=== PATIENT | female | born 1965 | race Hispanic/Latino ===

== ENCOUNTER 2017-12-15 06:34 | Inpatient (IN) | payer MEDICARE ==
[2017-12-14 11:27] VITALS: BMI 33.6
[2017-12-15 07:21] LABS: BASO # 0.1 K/uL (0.0-0.2); BASO % 0.8 % (0.0-2.0); EOS # 0.3 K/uL (0.0-0.7); EOS % 2.9 % (0.0-4.0); HEMOGLOBIN 15.1 g/dL (12.0-16.0); LYMPH # 2.8 K/uL (1.0-4.3); LYMPH % 29.9 % (20.0-40.0); MEAN CELL VOLUME 92.5 fl (81.0-99.0); MEAN CORPUSCULAR HEMOGLOBIN 32.5 pg (27.0-31.0); MEAN CORPUSCULAR HGB CONC 35.2 g/dL (33.0-37.0); MEAN PLATELET VOLUME 8.9 fl (7.2-11.7); MONO # 0.8 K/uL (0.0-0.8); NEUT # 5.3 K/uL (1.8-7.0); NEUT % 57.4 % (50.0-75.0); NRBC % 0.2 % (0.0-0.0); RBC 4.65 Mil/uL (3.80-5.20); RED CELL DISTRIBUTION WIDTH 12.4 % (11.5-14.5); WHITE BLOOD COUNT 9.3 K/uL (4.8-10.8)
--- NOTE | 2017-12-15 07:37 | CP.PCM.CON ---
History of Present Illness - History of Present Illness History of Present Illness: Orthopedic Consult: Dr. Borja Patient is a 52 y/o female with PMH of HTN,HLD, CVA and chronic back pain who presents for elective right TKA. The patient has had chronic right knee pain for many years. The pain has severely hindered her activities of daily living such as walking, stair-climbing and sitting. She has failed conservative management with exercises and oral medications, as well as intra-articular injections. She admits to occassional radiation of pain, numbness and tingling traveling to [facility] related to her chronic back issues. She also denies CP/SOB/N/V/D/fever/WILSON/dysuria/melena. Review of Systems - Review of Systems All systems: reviewed and no additional remarkable complaints except Review of Systems: as per HPI Past Patient History - Past Medical History & Family History Past Medical History?: Yes Past Family History: Reviewed and not pertinent - Past Social History Smoking Status: Light Smoker < 10 Cigarettes Daily Alcohol: None Drugs: Denies - CARDIAC Hx Cardiac Disorders: Yes Hx Hypercholesterolemia: Yes Hx Hypertension: Yes - PULMONARY Hx Respiratory Disorders: Yes Hx Asthma: Yes - NEUROLOGICAL HX Cerebrovascular Accident: Yes - HEENT Hx HEENT Problems: No - RENAL Hx Chronic Kidney Disease: No - ENDOCRINE/METABOLIC Hx Endocrine Disorders: No - HEMATOLOGICAL/ONCOLOGICAL Hx Blood Disorders: No - INTEGUMENTARY Hx Dermatological Problems: No - MUSCULOSKELETAL/RHEUMATOLOGICAL Hx Musculoskeletal Disorders: Yes Hx Arthritis: Yes (joints) Hx Back Pain: Yes - GASTROINTESTINAL Hx Gastroesophageal Reflux: Yes - GENITOURINARY/GYNECOLOGICAL Hx Genitourinary Disorders: No - PSYCHIATRIC Hx Psychophysiologic Disorder: No - SURGICAL HISTORY Hx Surgeries: Yes Other/Comment: biopsy ovary, left carpal tunnel release - ANESTHESIA Hx Anesthesia: Yes Hx Anesthesia Reactions: No Has any member of the family had a problem w/ anesthesia?: No Meds Allergies/Adverse Reactions: Allergies Allergy/AdvReac Type Severity Reaction Status Date / Time Penicillins Allergy SWELLING Verified 12/15/17 08:34 - Medications Medications: as per med rec Physical Exam - Constitutional Appears: Well, No Acute Distress - Head Exam Head Exam: ATRAUMATIC, NORMOCEPHALIC - Eye Exam Eye Exam: EOMI, Normal appearance, PERRL - ENT Exam ENT Exam: Mucous Membranes Moist - Respiratory Exam Respiratory Exam: NORMAL BREATHING PATTERN - Cardiovascular Exam Cardiovascular Exam: +S1, +S2 - GI/Abdominal Exam GI & Abdominal Exam: Soft. absent: Tenderness - Extremities Exam Additional comments: R knee: mild swelling and effusion diffuse medial/lateral tenderness ROM limited due to pain sensation intact SP/DP/TN motor intact EHL/FHL/TA/G pedal pulses intact calves soft NT b/l - Neurological Exam Neurological exam: Alert, Oriented x3 - Psychiatric Exam Psychiatric exam: Normal Affect, Normal Mood - Skin Skin Exam: Normal Color, Warm Results - Labs Result Diagrams: 12/15/17 07:15 Assessment & Plan (1) Osteoarthritis of right knee Assessment and Plan: -OR today for R TKA with Dr. Borja -Admit to Hospitalist -NPO -Risks/benefits/alternatives were explained to patient who understands and agrees to proceed with above procedure -above d/w Dr. Borja in agreement Status: Acute
[2017-12-15 07:40] LABS: SQUAMOUS EPITHIAL 1 /hpf (0-5); URINE BILIRUBIN NEGATIVE (NEGATIVE); URINE BLOOD NEGATIVE (NEGATIVE); URINE CLARITY SLIGHTY-CLOUDY (Clear); URINE COLOR AMBER (YELLOW); URINE GLUCOSE (UA) NEG (Normal); URINE LEUKOCYTE ESTERASE SMALL Leu/uL (Negative); URINE PROTEIN 30 mg/dL (NEGATIVE); URINE UROBILINOGEN 0.2-1.0 mg/dL (0.2-1.0)
--- NOTE | 2017-12-15 07:44 | CP.PCM.HP ---
History of Present Illness - History of Present Illness History of Present Illness: 52 yo female with pmhx of RA, asthma, CVA (2014), pre-DM, HLD, HTN, MARLON (on cPAP), chronic headache, and GERD seen and evaluated in [facility] preoperatively prior to R TKR surgery. Presents with her daughter. Patient can speak [place] well but daughter helps to translate. States that she has had problems with her back and other parts of her body for a long time but her right knee has been giving her the most pain and discomfort for about 6-7 years. States she has participated in physical therapy, taken medications, and had accupuncture but all outpatient and conservative management has failed. States that her knee hurts the most after she has been walking on it and it swells and bruises but she is in constant pain even at rest. Patient presented to PCP for clearance and was made aware that she has a UTI with e. coli present. All participants in care made aware. Repeat UA performed upon admission to [facility] today. Patient only complains of right knee pain today and denies N/V/F/C/SOB/CP. She last ate at 9:00 PM last night and has not had any reactions to anesthesia in the past. Patient took her HCTZ this morning with minimal water. PMHx: RA, asthma, CVA (2014), pre-DM, HLD, HTN, MARLON (on cPAP), chronic headache, and GERD PSHx: ovarian biopsy, carpal tunnel Meds: duloxetine, HCTZ, famotidine, meclizine, alprazolam, atrovastatin, riboflavin, mometassone-formolenol All: penicllins SH: 30+ year smoker, denies alcohol use, no illicit drug use FH: non contributory Present on Admission - Present on Admission Any Indicators Present on Admission: No Review of Systems - Constitutional Constitutional: absent: Chills, Fever, Headache - EENT Nose/Mouth/Throat: absent: Nasal Congestion, Dry Mouth, Dysphagia - Cardiovascular Cardiovascular: absent: Chest Pain - Respiratory Respiratory: absent: Cough, Dyspnea, Wheezing - Gastrointestinal Gastrointestinal: absent: Diarrhea, Nausea, Vomiting - Musculoskeletal Additional comments: Pain in right knee - Neurological Neurological: absent: Numbness, Tingling Past Patient History - Past Medical History & Family History Past Medical History?: Yes - Past Social History Smoking Status: Light Smoker < 10 Cigarettes Daily - CARDIAC Hx Cardiac Disorders: Yes Hx Hypertension: Yes - PULMONARY Hx Respiratory Disorders: Yes Hx Asthma: Yes - NEUROLOGICAL Hx Neurological Disorder: No - HEENT Hx HEENT Problems: No - RENAL Hx Chronic Kidney Disease: No - HEMATOLOGICAL/ONCOLOGICAL Hx Blood Disorders: No - INTEGUMENTARY Hx Dermatological Problems: No - MUSCULOSKELETAL/RHEUMATOLOGICAL Hx Musculoskeletal Disorders: Yes Hx Arthritis: Yes (joints) - GASTROINTESTINAL Hx Gastrointestinal Disorders: No - GENITOURINARY/GYNECOLOGICAL Hx Genitourinary Disorders: No - PSYCHIATRIC Hx Psychophysiologic Disorder: No - SURGICAL HISTORY Hx Surgeries: Yes Other/Comment: biopsy ovary - ANESTHESIA Hx Anesthesia: Yes Hx Anesthesia Reactions: No Has any member of the family had a problem w/ anesthesia?: No Meds Allergies/Adverse Reactions: Allergies Allergy/AdvReac Type Severity Reaction Status Date / Time Penicillins Allergy SWELLING Verified 12/15/17 08:34 Physical Exam - Constitutional Appears: Well, Non-toxic, No Acute Distress - Head Exam Head Exam: ATRAUMATIC, NORMOCEPHALIC - Eye Exam Eye Exam: EOMI, Normal appearance - ENT Exam ENT Exam: Mucous Membranes Moist - Respiratory Exam Respiratory Exam: Clear to Auscultation Bilateral, NORMAL BREATHING PATTERN - Cardiovascular Exam Cardiovascular Exam: REGULAR RHYTHM, +S1, +S2 - GI/Abdominal Exam GI & Abdominal Exam: Normal Bowel Sounds, Soft - Extremities Exam Extremities exam: Positive for: normal capillary refill, pedal pulses present Additional comments: Edema present at b/l LE, nonpitting Right knee swollen, no bruising or erythema present - Neurological Exam Neurological exam: Alert, Oriented x3 - Psychiatric Exam Psychiatric exam: Normal Affect, Normal Mood - Skin Skin Exam: Intact, Normal Color, Warm Results - Labs Result Diagrams: 12/15/17 07:15 Labs: Laboratory Results - last 24 hr 12/15/17 07:15 WBC 9.3 RBC 4.65 Hgb 15.1 Hct 43.0 MCV 92.5 MCH 32.5 H MCHC 35.2 RDW 12.4 Plt Count 273 MPV 8.9 Neut % (Auto) 57.4 Lymph % (Auto) 29.9 [place] % (Auto) 9.0 Eos % (Auto) 2.9 Baso % (Auto) 0.8 Neut # (Auto) 5.3 Lymph # (Auto) 2.8 [place] # (Auto) 0.8 Eos # (Auto) 0.3 Baso # (Auto) 0.1 Assessment & Plan - Assessment and Plan (Free Text) Assessment: 52 yo female with pmhx of RA, asthma, CVA (2013), pre-DM, HLD, HTN, MARLON (on cPAP), chronic headache, and GERD presents to same day surgery for elective R TKR. Plan: 1. Chronic right knee pain and swelling - orthopedic consult - Dr. Borja appreciated recs, f/u - elective R TKR today POD 0 - NPO confirmed with patient and daughter 2. UTI - repeat U&S ordered - ciprofloxacin 400mg ordered 3. HLD - chronic, controlled - continue at home rx 4. HTN - chronic, controlled - continue at home rx 5. MARLON - chronic - cPAP 6. GERD - chronic - continue home rx 6. DVT prophylaxis - continue s/p R TKR - Date & Time Date: 12/15/17 Time: 10:54
[2017-12-15] MEDS ORDERED: Propofol 10 mg/ml Inj (20 ML) ONE (08:35)
[2017-12-15] MEDS ORDERED: Midazolam 2 MG/2 ML VIAL ONE (08:36)
[2017-12-15] MEDS ORDERED: Lidocaine 2% MPF (5 ml) Inj ONE (08:36)
[2017-12-15] MEDS ORDERED: Ropivacaine 0.5% 30ML IV ONE (08:42)
[2017-12-15] MEDS ORDERED: Sevoflurane - Inhalation Anesthetic Liq (250 ml) ONE (08:50)
[2017-12-15] MEDS ORDERED: Bacitracin Ointment 30 GM TUBE ONE (09:27)
[2017-12-15] MEDS ORDERED: Absorbable Gelatin Sponge Size 12-7 ONE (09:27)
[2017-12-15] MEDS ORDERED: Lidocaine 2% Jelly (5 ml) TOP ONE (10:21)
[2017-12-15] MEDS ORDERED: Succinylcholine 200 mg/10 ml Inj IV ONE (10:22)
[2017-12-15] MEDS ORDERED: Lactated Ringer's 1,000 ML IV ONE ×3 (10:25→17:30)
[2017-12-15] MEDS ORDERED: ePHEDrine 50 mg/ml Inj ONE ×2 (10:44→11:17)
[2017-12-15] MEDS ORDERED: Rocuronium 10 mg/ml (5 ml) ONE (10:54)
[2017-12-15] MEDS ORDERED: Tranexamic Acid 1,000 MG in Sodium Chloride 0.9% 100 ML IVPB ONE (12:45)
[2017-12-15] MEDS ORDERED: Sodium Chloride 0.9% 500 ML IV ONE (13:00)
[2017-12-15] MEDS ORDERED: Lactated Ringer's 500 ML IV ONE (13:00)
[2017-12-15] MEDS ORDERED: Neostigmine 1:1000 (1 mg/ml) Inj ONE (13:27)
--- NOTE | 2017-12-15 13:41 | PCM.SURG1 ---
Surgeon's Initial Post Op Note - Surgeon's Notes Surgeon: Jonh Special Delivery Clerk: 1st assist AVANI Thibodeaux/ 2nd assist Marisol Sheehan PA-C Type of Anesthesia: General Endo, Block Regional Anesthesia Administered By: DR Elroy Lord Pre-Operative Diagnosis: Tricomartmental O/A R knee Operative Findings: tricompartmental O/A R knee. tricomaprtmental synovitis. lateral patella contracture Post-Operative Diagnosis: as above Operation Performed: R TKR. repair/reinforcement R patella ligament. posterior capsular release. lateral patella release. computyer navigation Specimen/Specimens Removed: cartilage/synvoium bone Estimated Blood Loss: EBL {In ML}: 72 Blood Products Given: N/A Drains Used: Wound Vac Post-Op Condition: Fair Date of Surgery/Procedure: 12/15/17 Time of Surgery/Procedure: 11:35 (time in room 1025 anaesthesia indcutiontime)
--- NOTE | 2017-12-15 13:57 | CARD ---
APPROVED REPORT Date of service: 12/15/2017 EKG Measurement Heart [id number] <Conclusion> Normal sinus rhythm Normal ECG
--- NOTE | 2017-12-15 14:11 | PCM.ANESB3 ---
Femoral Nerve Block - Femoral Nerve Block Date of Procedure: 12/15/17 Anesthesiologist: Elroy Lord M.D. Pre-Procedure Diagnosis: Right osteoarthritis Post-Procedure Diagnosis: Right osteeoarthritis Procedure Performed: Femoral Nerve Block Right - Procedure Femoral Nerve Block: The procedure was explained to the patient that it is for the post-operative pain management. Consent was obtained after a thorough discussion with the patient regarding the benefits and possible complications of local anesthetic block of the femoral nerve at the inguinal crease area. The patient was brought to the operating room and standard monitors were applied. Time-out was held with the circulating nurse to confirm the correct surgery and the appropriate block.Under general anesthesia, The femoral artery was then carefully palpated. The ultrasound transducer was then applied to this area in the transverse plane and the femoral nerve was visualized lateral to the femoral artery and underneath the fascia iliaca. After thorough identification, the inguinal crease area was prepped with Betadine solution three times and 1 % Lidocaine was injected subcutaneously for topical anesthesia. At this point, a #22 gauge Stimuplex 2-inch needle was inserted immediately lateral to the femoral artery pulse at the inguinal crease and advanced perpendicularly. The needle was inserted to the ultrasound transducer in-plane towards the femoral nerve in a [id number] direction. Needle advancement was performed carefully under direct ultrasound visualization. Nerve stimulator was used and twitch of the quadriceps muscle was obtained at current of _.4____MA. After negative aspiration, __20___cc of __.5___% __ropivacaine was injected. with ___0___ c . Under ultrasound guidance the local anesthetics were observed spreading below fascia iliaca and around the femoral nerve. The needle was removed intact and sterile dressing was applied. The patient had stable vital signs, was conscious and in no apparent distress. The patient tolerated the femoral nerve block well with stable vital signs and was prepared for subsequent surgery.
[2017-12-15] MEDS ORDERED: Sodium Chloride 0.9% 1,000 ML IV SCH (14:15)
--- NOTE | 2017-12-15 14:26 | PCM.ANESB2 ---
Popliteal Nerve Block - Popliteal Nerve Block Date of Procedure: 12/15/17 Anesthesiologist: Elroy Lord M.D. Pre-Procedure Diagnosis: Right osteoarthritis Post-Procedure Diagnosis: Right osteoarthritis Procedure Performed: Popliteal Nerve Block Right - Procedure Popliteal Nerve Block: This procedure was explained to the patient that it is for post-operative pain management. Consent was obtained after a thorough discussion with the patient regarding the benefits and possible complications of local anesthetic block of the sciatic nerve at the popliteal level. The patient was brought to the operating room and standard monitors are applied. Time-out was held with the circulating nurse to confirm the correct surgery and the appropriate block.Under general anesthesia, , patient's operative leg was gently raised and supported and the groove in between the biceps femoris and vastus lateralis muscles was carefully palpated. The skin approximately 8cm above the popliteal crease was then marked. The ultrasound transducer was then applied to the posterior thigh approximately 8cm above the popliteal crease in the transverse plane and the sciatic nerve before its division was visualized lateral to the popliteal artery and in between the bicep femoris and semimembranosus/semitendinosus muscles. After identification, the lateral portion of the thigh was prepped with Betadine solution three times and Lidocaine 1% was injected subcutaneously for topical anesthesia. At this point, a # 21 gauge Stimuplex insulated 4 inch needle was inserted into pre-marked area and advanced in a perpendicular direction. The needle was inserted above the ultrasound transducer in-plane towards the sciatic nerve in a [id number] direction. Needle advancement was performed carefully under direct ultrasound visualization. Nerve stimulator was used and dorsiflexion of the __right___ foot was elicited at a current of _.4____ MA. After repeated negative aspiration, 20 cc of _.5____ % __ropivacaine was injected. . The needle was removed intact and sterile dressing was applied. The patient tolerated the popliteal nerve block well with stable vital signs and was subsequently prepared for the surgery.
--- NOTE | 2017-12-15 15:22 | RAD ---
Date of service: 12/15/2017 PROCEDURE: Postop right knee HISTORY: s/p TKR pt in PACU COMPARISON: None. TECHNIQUE: Portable study 14:52 FINDINGS: Expected postoperative findings status post right TKA. Air/fluid in the suprapatellar bursa noted. IMPRESSION: Satisfactory postoperative status.
[2017-12-15] MEDS: Ciprofloxacin 400mg/200ml D5W 400 MG/200 ML BAG IVPB SCH ×2 (15:30→23:00)
--- NOTE | 2017-12-15 16:51 | CP.PCM.PCO ---
Physician Communication Note - Physician Communication Note Physician Communication Note: Seen at bedside, denies N/V/F/C/SOB/CP, denies pain s/p R TKR POD 0
[2017-12-15] MEDS: Fluticasone-Salmeterol 250-50mcg Diskus IH SCH (21:43)
[2017-12-15] MEDS: Clindamycin 600mg/50ml NS 600 MG/50 ML BAG IVPB SCH (21:44)
[2017-12-15] MEDS: Pantoprazole 40 mg EC Tab PO SCH (21:45)
[2017-12-15] MEDS: oxyCODONE 5 mg Immediate Release Tab PO PRN (21:54)
[2017-12-16] MEDS: oxyCODONE 5 mg Immediate Release Tab PO PRN ×4 (01:58→19:07)
[2017-12-16] MEDS: Clindamycin 600mg/50ml NS 600 MG/50 ML BAG IVPB SCH (05:52)
[2017-12-16 06:28] LABS: HEMOGLOBIN 12.6 g/dL (12.0-16.0); MEAN CELL VOLUME 93.9 fl (81.0-99.0); MEAN CORPUSCULAR HEMOGLOBIN 32.4 pg (27.0-31.0); MEAN CORPUSCULAR HGB CONC 34.5 g/dL (33.0-37.0); RBC 3.89 Mil/uL (3.80-5.20); RED CELL DISTRIBUTION WIDTH 12.4 % (11.5-14.5); WHITE BLOOD COUNT 9.1 K/uL (4.8-10.8)
[2017-12-16 06:35] LABS: BLOOD UREA NITROGEN 13 mg/dl (7-17); CALCIUM 8.5 mg/dL (8.4-10.2); GFR NON-AFRICAN AMERICAN > 60
[2017-12-16] MEDS: Ciprofloxacin 400mg/200ml D5W 400 MG/200 ML BAG IVPB SCH (08:59)
[2017-12-16] MEDS: Fluticasone-Salmeterol 250-50mcg Diskus IH SCH (08:59)
[2017-12-16] MEDS ORDERED: Magnesium Oxide 400 mg Tab UD PO SCH (09:00)
[2017-12-16] MEDS ORDERED: Pneumococcal 23-Valent Vaccine IM ONE (09:00)
--- NOTE | 2017-12-16 09:03 | CP.PCM.PN ---
Subjective - Date & Time of Evaluation Date of Evaluation: 12/16/17 Time of Evaluation: 09:18 - Subjective Subjective: Patient states she has a lot of pain in her knee. Denies CP/SOB/dizziness/numbness/tingling. Objective - Vital Signs/Intake and Output Vital Signs (last 24 hours): Temp Pulse Resp BP Pulse Ox 97.7 F 85 21 102/69 94 L 12/16/17 08:49 12/16/17 08:49 12/16/17 08:49 12/16/17 08:49 12/16/17 08:49 - Medications Medications: Current Medications Acetaminophen (Tylenol 325mg Tab) 650 mg PO Q6 [facility] Last Admin: 12/16/17 04:15 Dose: 650 mg Aspirin (Ecotrin) 81 mg PO BID [facility] Last Admin: 12/16/17 09:00 Dose: 81 mg Atorvastatin Calcium (Lipitor) 40 mg PO DAILY [facility] Last Admin: 12/16/17 09:01 Dose: 40 mg Docusate Sodium (Colace) 100 mg PO BID [facility] Last Admin: 12/16/17 09:00 Dose: 100 mg Duloxetine HCl (Cymbalta) 30 mg PO DAILY [facility] Last Admin: 12/16/17 09:00 Dose: 30 mg Hydrochlorothiazide (Hydrodiuril) 25 mg PO DAILY [facility] Last Admin: 12/16/17 09:01 Dose: 25 mg Hydromorphone HCl (Dilaudid) 0.5 mg IVP Q4 PRN PRN Reason: Pain, severe (8-10) Last Admin: 12/16/17 03:12 Dose: 0.5 mg Ciprofloxacin (Cipro 400mg/200ml Dsw) 400 mg in 200 mls @ 200 mls/hr IVPB Q12 [facility]; Protocol Last Admin: 12/16/17 08:59 Dose: 200 mls/hr Magnesium Oxide (Mag-Ox) 400 mg PO DAILY [facility] Last Admin: 12/16/17 09:01 Dose: 400 mg Oxycodone HCl (Oxycodone Immediate Release Tab) 5 mg PO Q4H PRN PRN Reason: Pain, moderate (4-7) Last Admin: 12/16/17 05:52 Dose: 5 mg Pantoprazole Sodium (Protonix Ec Tab) 40 mg PO ACD [facility] Last Admin: 12/15/17 21:45 Dose: 40 mg Fluticasone/Salmeterol (Advair Diskus 250/50) 1 puff IH Q12 [facility] Last Admin: 12/16/17 08:59 Dose: 1 puff - Labs Labs: 12/16/17 05:40 12/16/17 05:40 - Extremities Exam Additional comments: +ROM ankle/toes dressing intact sensation intact +DP/PT pulses Assessment and Plan (1) Osteoarthritis of right knee Assessment & Plan: POD#1 s/p TKR PT/OT VTE proph with 81mg aspirin BID per Dr. Borja pain medication, due for medication now ortho stable for d/c, d/c planning If patient to be transferred to TCU, will plan dressing change on 12/19. If patient to be transferred to outside facility, instructions to be given to remove the SUE dressing on 12/19 and to apply dry sterile dressing and lucinda d/w Dr. Borja, agrees with above Status: Acute (2) Acute blood loss anemia Assessment & Plan: VSS labs in am Status: Acute (3) HTN (hypertension) Status: Acute
--- NOTE | 2017-12-16 09:58 | CP.PCM.CON ---
History of Present Illness - History of Present Illness History of Present Illness: I WAS ASKED TO FOLLOW THIS PATIENT BY DR QUINTERO. SHE HAD A TOTAL RKR BY DR QUINTERO YESTERDAY. SHE HAS RA, HYPERTENSION, HYPERLIPIDEMIA, ASTHMA, MARLON, PRE DM AND GERDS. SHE DENIES ANY CARDIAC PROBLEMS. SHE DENIES CHEST PAIN OR SOB T MARTY. HER ONLY COMPLAINT TODAY IS SURGICAL SITE PAIN. Past Patient History - Past Medical History & Family History Past Medical History?: Yes Past Family History: Reviewed and not pertinent - Past Social History Smoking Status: Light Smoker < 10 Cigarettes Daily Alcohol: None Drugs: Denies - CARDIAC Hx Cardiac Disorders: Yes Hx Hypercholesterolemia: Yes Hx Hypertension: Yes - PULMONARY Hx Respiratory Disorders: Yes Hx Asthma: Yes - NEUROLOGICAL HX Cerebrovascular Accident: Yes - HEENT Hx HEENT Problems: No - RENAL Hx Chronic Kidney Disease: No - ENDOCRINE/METABOLIC Hx Endocrine Disorders: No - HEMATOLOGICAL/ONCOLOGICAL Hx Blood Disorders: No - INTEGUMENTARY Hx Dermatological Problems: No - MUSCULOSKELETAL/RHEUMATOLOGICAL Hx Musculoskeletal Disorders: Yes Hx Arthritis: Yes (joints) Hx Back Pain: Yes - GASTROINTESTINAL Hx Gastroesophageal Reflux: Yes - GENITOURINARY/GYNECOLOGICAL Hx Genitourinary Disorders: No - PSYCHIATRIC Hx Psychophysiologic Disorder: No - SURGICAL HISTORY Hx Surgeries: Yes Other/Comment: biopsy ovary, left carpal tunnel release - ANESTHESIA Hx Anesthesia: Yes Hx Anesthesia Reactions: No Has any member of the family had a problem w/ anesthesia?: No Meds Allergies/Adverse Reactions: Allergies Allergy/AdvReac Type Severity Reaction Status Date / Time Penicillins Allergy SWELLING Verified 12/15/17 08:34 - Medications Medications: Current Medications Acetaminophen (Tylenol 325mg Tab) 650 mg PO Q6 [facility] Last Admin: 12/16/17 04:15 Dose: 650 mg Aspirin (Ecotrin) 81 mg PO BID [facility] Last Admin: 12/16/17 09:00 Dose: 81 mg Atorvastatin Calcium (Lipitor) 40 mg PO DAILY [facility] Last Admin: 12/16/17 09:01 Dose: 40 mg Docusate Sodium (Colace) 100 mg PO BID [facility] Last Admin: 12/16/17 09:00 Dose: 100 mg Duloxetine HCl (Cymbalta) 30 mg PO DAILY [facility] Last Admin: 12/16/17 09:00 Dose: 30 mg Hydrochlorothiazide (Hydrodiuril) 25 mg PO DAILY [facility] Last Admin: 12/16/17 09:01 Dose: 25 mg Hydromorphone HCl (Dilaudid) 0.5 mg IVP Q4 PRN PRN Reason: Pain, severe (8-10) Last Admin: 12/16/17 03:12 Dose: 0.5 mg Ciprofloxacin (Cipro 400mg/200ml Dsw) 400 mg in 200 mls @ 200 mls/hr IVPB Q12 [facility]; Protocol Last Admin: 12/16/17 08:59 Dose: 200 mls/hr Magnesium Oxide (Mag-Ox) 400 mg PO DAILY [facility] Last Admin: 12/16/17 09:01 Dose: 400 mg Oxycodone HCl (Oxycodone Immediate Release Tab) 5 mg PO Q4H PRN PRN Reason: Pain, moderate (4-7) Last Admin: 12/16/17 05:52 Dose: 5 mg Pantoprazole Sodium (Protonix Ec Tab) 40 mg PO ACD [facility] Last Admin: 12/15/17 21:45 Dose: 40 mg Fluticasone/Salmeterol (Advair Diskus 250/50) 1 puff IH Q12 [facility] Last Admin: 12/16/17 08:59 Dose: 1 puff Physical Exam - Respiratory Exam Respiratory Exam: Clear to Auscultation Bilateral - Cardiovascular Exam Cardiovascular Exam: REGULAR RHYTHM, +S1, +S2 - Extremities Exam Additional comments: RLE WITH SURGICAL WRAPPINGS LLE WITHOUT EDEMA - Additional Findings Additional findings: OR NOTES REVIEWED H/H TODAY Results - Vital Signs Recent Vital Signs: Last Vital Signs Temp 97.7 F 12/16/17 08:49 Pulse 85 12/16/17 08:49 Resp 21 12/16/17 08:49 BP 102/69 12/16/17 08:49 Pulse Ox 94 L 12/16/17 08:49 - Labs Result Diagrams: 12/16/17 05:40 12/16/17 05:40 Labs: Laboratory Results - last 24 hr 12/15/17 12/16/17 12/16/17 07:15 05:40 05:40 WBC 9.1 RBC 3.89 Hgb 12.6 D Hct 36.6 MCV 93.9 MCH 32.4 H MCHC 34.5 RDW 12.4 Plt Count 205 Sodium 138 Potassium 4.0 Chloride 107 Carbon Dioxide 23 Anion Gap 12 BUN 13 Creatinine 0.6 L Est GFR ( Amer) > 60 Est GFR (Non-Af Amer) > 60 Random Glucose 130 H Calcium 8.5 Magnesium 1.8 Blood Type A POSITIVE Antibody Screen Negative Crossmatch See Detail BBK History Checked No verified bt Assessment & Plan - Assessment and Plan (Free Text) Assessment: S/P RIGHT TKR HYPERTENSION HYPERLIPIDEMIA ASTHMA MARLON Plan: CONTINUE ATORVASTATIN AND HCTZ
[2017-12-16 10:03] VITALS: PULSE 88
--- NOTE | 2017-12-16 11:38 | CP.PCM.DIS ---
Provider - Provider Date of Admission: 12/15/17 14:03 Attending physician: Eyal Cadena MD Primary care physician: Nando Borja III, MD Consults: Cardiology - Dr. Kelley Ortho - Dr. Borja Time Spent in preparation of Discharge (in minutes): 30 Diagnosis - Discharge Diagnosis (1) Osteoarthritis of right knee Status: Acute Hospital Course - Lab Results Lab Results: Micro Results 12/15/17 07:15 Urine Urine Culture - Preliminary Gram Positive Cocci Gram Negative Juan A Most Recent Lab Values WBC 9.1 K/uL (4.8-10.8) 12/16/17 05:40 RBC 3.89 Mil/uL (3.80-5.20) 12/16/17 05:40 Hgb 12.6 g/dL (12.0-16.0) D 12/16/17 05:40 Hct 36.6 % (34.0-47.0) 12/16/17 05:40 MCV 93.9 fl (81.0-99.0) 12/16/17 05:40 MCH 32.4 pg (27.0-31.0) H 12/16/17 05:40 MCHC 34.5 g/dL (33.0-37.0) 12/16/17 05:40 RDW 12.4 % (11.5-14.5) 12/16/17 05:40 Plt Count 205 K/uL (130-400) 12/16/17 05:40 MPV 8.9 fl (7.2-11.7) 12/15/17 07:15 Neut % (Auto) 57.4 % (50.0-75.0) 12/15/17 07:15 Lymph % (Auto) 29.9 % (20.0-40.0) 12/15/17 07:15 Hamilton % (Auto) 9.0 % (0.0-10.0) 12/15/17 07:15 Eos % (Auto) 2.9 % (0.0-4.0) 12/15/17 07:15 Baso % (Auto) 0.8 % (0.0-2.0) 12/15/17 07:15 Neut # (Auto) 5.3 K/uL (1.8-7.0) 12/15/17 07:15 Lymph # (Auto) 2.8 K/uL (1.0-4.3) 12/15/17 07:15 Hamilton # (Auto) 0.8 K/uL (0.0-0.8) 12/15/17 07:15 Eos # (Auto) 0.3 K/uL (0.0-0.7) 12/15/17 07:15 Baso # (Auto) 0.1 K/uL (0.0-0.2) 12/15/17 07:15 Sodium 138 mmol/l (132-148) 12/16/17 05:40 Potassium 4.0 MMOL/L (3.6-5.0) 12/16/17 05:40 Chloride 107 mmol/L (98-107) 12/16/17 05:40 Carbon Dioxide 23 mmol/L (22-30) 12/16/17 05:40 Anion Gap 12 (10-20) 12/16/17 05:40 BUN 13 mg/dl (7-17) 12/16/17 05:40 Creatinine 0.6 mg/dl (0.7-1.2) L 12/16/17 05:40 Est GFR ( Amer) > 60 12/16/17 05:40 Est GFR (Non-Af Amer) > 60 12/16/17 05:40 Random Glucose 130 mg/dL (65-105) H 12/16/17 05:40 Calcium 8.5 mg/dL (8.4-10.2) 12/16/17 05:40 Magnesium 1.8 MG/DL (1.6-2.3) 12/16/17 05:40 Urine Color Romina (YELLOW) 12/15/17 07:15 Urine Clarity Slighty-cloudy (Clear) 12/15/17 07:15 Urine pH 5.0 (5.0-8.0) 12/15/17 07:15 Ur Specific Jackson 1.027 (1.003-1.030) 12/15/17 07:15 Urine Protein 30 mg/dL (NEGATIVE) 12/15/17 07:15 Urine Glucose (UA) Neg mg/dL (Normal) 12/15/17 07:15 Urine Ketones Negative mg/dL (NEGATIVE) 12/15/17 07:15 Urine Blood Negative (NEGATIVE) 12/15/17 07:15 Urine Nitrate Negative (NEGATIVE) 12/15/17 07:15 Urine Bilirubin Negative (NEGATIVE) 12/15/17 07:15 Urine Urobilinogen 0.2-1.0 mg/dL (0.2-1.0) 12/15/17 07:15 Ur Leukocyte Esterase Small Desean/uL (Negative) 12/15/17 07:15 Urine Microscopic WBC 11 /hpf (0-5) H 12/15/17 07:15 Ur Squamous Epith Cells 1 /hpf (0-5) 12/15/17 07:15 Blood Type A POSITIVE 12/15/17 07:15 Blood Type Confirm A POSITIVE 12/15/17 08:36 Antibody Screen Negative 12/15/17 07:15 Crossmatch See Detail 12/15/17 07:15 BBK History Checked No verified bt 12/15/17 07:15 - Hospital Course Hospital Course: 52 yo female with pmhx of RA, asthma, CVA (2013), pre-DM, HLD, HTN, MARLON (on cPAP), chronic headache, and GERD presented to same day surgery for elective R TKR POD 1. Patient failed outpatient therapy and treatment. Prior to surgery patient seen at primary care office for clearance, stated patient had UTI. UA and Urine C&S ordered prior to surgery, UA revealed WBCs 11. Patient started on ciprofloxacin while in house. Patient also given 2 doses of clindamycin as allergic to penicillin. PT/OT saw patient and recommended use of walker during recovery. Stable for discharge home. Benefit from skilled PT outpatient. Ortho recommended VTE proph with 81 mg aspirin BID, instructions to e given upon d/c to remove SUE dressing on 12/19 and apply DSD and LUZ. Patient stable for discharge and will follow up with Dr. Borja as outpatient. - Date & Time of H&P Date of H&P: 12/16/17 Time of H&P: 11:37 Discharge Exam - Head Exam Head Exam: ATRAUMATIC, NORMOCEPHALIC - Eye Exam Eye Exam: EOMI, Normal appearance - ENT Exam ENT Exam: Mucous Membranes Moist - Respiratory Exam Respiratory Exam: Clear to PA & Lateral, NORMAL BREATHING PATTERN - Cardiovascular Exam Cardiovascular Exam: REGULAR RHYTHM, +S1, +S2 - GI/Abdominal Exam GI & Abdominal Exam: Normal Bowel Sounds, Soft - Extremities Exam Additional comments: +ROM ankle/toes dressing intact sensation intact +DP/PT pulses - Neurological Exam Neurological exam: Alert, Oriented x3 - Psychiatric Exam Psychiatric exam: Normal Affect, Normal Mood - Skin Skin Exam: Dry, Warm Discharge Plan - Follow Up Plan Condition: GOOD Disposition: HOME/ ROUTINE Referrals: Nando Borja III, MD [Primary Care Provider] - Clinical Quality Measures - Date & Time of Discharge Summary Date of Discharge Summary: 12/16/17 Time of Discharge Summary: 11:41
[2017-12-16 16:19] VITALS: BP 119/79; RESP 20; TEMP 98.4; O2SAT 97
[2017-12-16] MEDS: Pantoprazole 40 mg EC Tab PO SCH (16:38)
--- NOTE | 2017-12-19 09:17 | OP ---
PROCEDURE DATE: 12/15/2017 PREOPERATIVE DIAGNOSIS: Tricompartmental osteoarthritis of the right knee with valgus deformity and recurvatum. POSTOPERATIVE DIAGNOSIS: Tricompartmental osteoarthritis of the right knee versus inflammatory arthritis with external rotation and valgus deformity and recurvatum. OPERATIVE FINDINGS: 1. Tricompartmental osteoarthritis of the right knee with valgus deformity and recurvatum. 2. Tricompartmental synovitis. 3. Lateral patellar retinacular contracture. 4. Posterior capsular contracture. SURGEON: Nando Borja MD HARNESS CUTTER: Rox Michaels, certified registered nursing psychiatric assistant. SECOND ELECTRONIC PREPRESS TECHNICIAN: ABHILASH Zabala. ANESTHESIA: General endotracheal anesthesia and regional block administered by Dr. Elroy Lord. OPERATIONS PERFORMED: 1. Right total knee replacement arthroplasty. 2. Repair and reinforcement right patellar ligament. 3. Posterior capsular release. 4. Lateral patellar retinacular release. 5. Computer navigation. SPECIMENS REMOVED: Cartilage, synovium and bone. ESTIMATED BLOOD LOSS: 72 mL. BLOOD PRODUCTS: No blood products given. DRAINS USED: A SUE wound VAC. POSTOPERATIVE CONDITION: Fair. TIME IN THE ROOM: 10:25. ANESTHESIA INDUCTION TIME: 10:25. INCISION TIME: 11:35. INDICATION: After having obtained informed consent in the above fashion, after thoroughly discussing the pros, cons, risks and benefits of replacement arthroplasty, after discussing alternative procedures including intraarticular injection, benign neglect, physical therapy, the patient identified as demands replacement arthroplasty. The possibility of mechanical failure, infection, thromboembolic disease, nerve injury, secondary or tertiary surgery was discussed. OPERATIVE PROCEDURE: After having obtained informed consent in the above fashion, after having identified side, site and procedure and a critical pause/time-out, after the satisfactory induction of the anesthetic, the patient identified as in the supine position with all bony prominences well padded. The right lower extremity was prepped and free draped in usual fashion for lower extremity surgery. The tourniquet had been applied but was not yet inflated. After exsanguinating the limb using a 6-inch Esmarch bandage, the tourniquet which had been applied was inflated to 350 mmHg. A 6-inch straight midline approach was made to the knee. The skin incision was carried down through the skin and subcutaneous tissue. Hemostasis was controlled using electrocautery. The dissection was carried around posteromedially to the direct head of the semimembranosus tendon and a portion of the patellar ligament was elevated. The patella was everted. The knee was flexed. Anterior and posterior cruciate ligaments were excised. Medial and lateral meniscectomies were accomplished. This having been accomplished, the tibia was dislocated anteriorly, computer navigation commences. The Ortho Line device was applied to the proximal tibia, it was fixed to the proximal tibia with a strap and pins. The offset is the distance from the stylet to the posterior insertion of the anterior cruciate ligament. The accelerometer was applied and was the sensor. Varus-valgus registration was accomplished. The offset from the posterior insertion of the anterior cruciate ligament. Lateral malleolus was registered. Medial malleolus was registered. The cut is set to 0 degrees varus-valgus with 3.5 degrees posterior slope. Initial osteotomy was accomplished. The tibia sized to a #2 tibial component. A portion of the iliotibial band was released from the lateral aspect of the Gerdy's tubercle. The tibial cut having been accomplished, attention was turned to the patella. Freehand patella osteotomy was accomplished. The sizing is to a 32 mm patella. Freehand osteotomy was accomplished. Anterior and posterior synovectomy at this point was accomplished. Navigation pin was applied to the superior aspect of the intercondylar notch. The distal femoral cutting guide was applied and affixed with pins. At this point in time, the accelerometer was applied as was the sensor and again computer navigation continues. The hip center was found. The distal femoral cut, was set to 0 degrees varus-valgus and 0.5 degrees of flexion. The cut was adjusted to 11 mm because of the recurvatum. Distal cut having been accomplished, anterior and posterior sizing is to a #1 femoral component. Anterior and posterior synovectomy was accomplished. Posterior capsular release was accomplished. Lateral and patellar retinacular release was accomplished from an inside out using the electrocautery. Anterior and posterior synovectomy having been accomplished. This having been accomplished, the trial femoral component was applied to the distal femur. The milling was accomplished for the intercondylar notch, sizing was found to be acceptable at #1 femoral component. The tibia was dislocated anteriorly. The proximal tibia was prepared. Guidance rotation of the lateral aspect of the tibial condyle, mid malleolar axis, medial third of the tibial tuberosity. Proximal tibia was prepared, 13-mm polyethylene is requested. The knee is reduced and found to be stable in flexion extension. The proximal tibia was reamed for a 32 mm component. The patellar component having been applied, the lateral patellar retinacular release having been accomplished, posterior capsular release having been accomplished, the patella balance was found to be excellent as the flexion/extension gap. This having been accomplished, the femur was prepared, the tibia was prepared and the patella was prepared with a Waterpik. The #1 cemented femoral component was applied. The #2 cemented tibial tray, 32-mm polyethylene patella and 13-mm polyethylene. The knee was reduced and found to be stable in all planes. Tourniquet is deflated. The hemostasis controlled. The wound was thoroughly irrigated. Closures in layers, #2 FiberWire, #1 Vicryl followed by 0 Quill, Vicryl, august for skin. No drain was employed. The SUE wound VAC was employed. Shaq Mcknight compression dressing and knee immobilizers applied. It should be noted that the repair and reinforcement of the right patellar ligament is accomplished prior to closure. At this point in time, drilling was accomplished prior to the Arthrex FiberWire closure of the medial arthrotomy. The patellar ligament is repaired and reinforced using the Arthrex PEEK anchor. This was brought with the knee in extension to stabilize the patellar ligament to the medial retinaculum. At this point time, after repair and reinforcement of the patellar ligament, closure of the medial retinaculum was accomplished with FiberWire, #1 Vicryl followed by Quill, Vicryl and august for skin. A Shaq Mcknight compression dressing and knee immobilizers applied. The SUE wound VAC was applied. It should be noted that the assistantship of Marisol Sheehan and Rox Michaels are necessary to the completion of the operative goal. Nando Borja MD
== END 2017-12-16 20:00 | DRG 470 ==
LOC: H.OPSURG 06:34 → H.MEDSURG1 14:03
PROVIDERS: ADMIT Internal Medicine; ATTEND Internal Medicine
PROC: 8E0YXBZ Computer Assisted Procedure of Lower Extremity (ICD-10-PCS; 2017-12-15)
PROC: 0SRC0J9 Replacement of Right Knee Joint with Synthetic Substitute, Cemented, Open Approach (ICD-10-PCS; principal; 2017-12-15 12:30)
PROC: 3E0T3BZ Introduction of Anesthetic Agent into Peripheral Nerves and Plexi, Percutaneous Approach (ICD-10-PCS; 2017-12-15 12:30)
PROC: 3E0T33Z Introduction of Anti-inflammatory into Peripheral Nerves and Plexi, Percutaneous Approach (ICD-10-PCS; 2017-12-15 12:30)
PROC: 3E0234Z Introduction of Serum, Toxoid and Vaccine into Muscle, Percutaneous Approach (ICD-10-PCS; 2017-12-16)
DX: M17.11 Unilateral primary osteoarthritis, right knee (principal); N39.0 Urinary tract infection, site not specified; D62 Acute posthemorrhagic anemia; M65.861 Other synovitis and tenosynovitis, right lower leg; B95.2 Enterococcus as the cause of diseases classified elsewhere; B96.20 Unspecified Escherichia coli [E. coli] as the cause of diseases classified elsewhere; G89.29 Other chronic pain; K21.9 Gastro-esophageal reflux disease without esophagitis; E78.5 Hyperlipidemia, unspecified; E78.00 Pure hypercholesterolemia, unspecified; G47.33 Obstructive sleep apnea (adult) (pediatric); I10 Essential (primary) hypertension; J45.909 Unspecified asthma, uncomplicated; F17.210 Nicotine dependence, cigarettes, uncomplicated; R73.03 Prediabetes; Z23 Encounter for immunization; Z88.0 Allergy status to penicillin; Z86.73 Personal history of transient ischemic attack (TIA), and cerebral infarction without residual deficits